=== PATIENT | female | born 1985 | race African-American/Black ===

== ENCOUNTER 2018-09-10 05:55 | Day surgery (SDC) | payer BC ==
[~2018-09-10] VITALS: Ht 167.6 cm; Wt 60.8 kg
[2018-09-10] MEDS ORDERED: CEFAZOLIN SOD 1 GM in D5W 50 ML IV ONE (07:30)
[2018-09-10] MEDS ORDERED: LR 1,000 ML IV SCH (11:05)
[2018-09-10] MEDS ORDERED: METOCLOPRAMIDE HCL 10 MG/2 ML VIAL IVP PRN (11:15)
[2018-09-10] MEDS ORDERED: MORPHINE 4 MG/ML INJ. SYRINGE IVP PRN ×3 (11:15)
[2018-09-10] MEDS ORDERED: ONDANSETRON HCL 4 MG/2 ML VIAL IVP PRN (12:15)
[2018-09-10] MEDS ORDERED: OXYCODONE/ACETAMINOPHEN 5-325 TABLET PO PRN ×2 (12:15)
[2018-09-10] MEDS ORDERED: HYDROcodone/ACETAMIN 5-325 MG TAB (NORCO/ VICODIN) PO PRN (12:15)
[2018-09-10] MEDS ORDERED: MORPHINE 4 MG/ML INJ. SYRINGE ONE (12:58)
[2018-09-10] MEDS ORDERED: SIMETHICONE 80 MG TAB.CHEW PO SCH (13:00)
[2018-09-10 13:46] VITALS: BP_SYST 118
[2018-09-10] MEDS ORDERED: CEFAZOLIN 2 GM IVPB PREMIX 50 ML IV ONE (15:00)
[2018-09-10] MEDS ORDERED: ONDANSETRON HCL 4 MG/2 ML VIAL ONE (16:48)
[2018-09-10] MEDS ORDERED: ONDANSETRON HCL 4 MG/2 ML VIAL IVP ONE (17:55)
[2018-09-10] MEDS ORDERED: LR 1,000 ML IV.SOLN IV ONE (17:55)
[2018-09-10] MEDS ORDERED: NS IRRIG SOLN 1000 ML IR ONE (17:55)
[2018-09-10] MEDS ORDERED: PROPOFOL 200MG/ 20ML VIAL (DIPRIVAN) IV ONE (17:55)
[2018-09-10] MEDS ORDERED: WATER FOR IRRIGATION,STERILE 1,000 ML IRRIG.SOLN IR ONE (17:55)
[2018-09-10] MEDS ORDERED: DEXAMETHASONE SOD PHOSPHATE 4 MG/ML VIAL IVP ONE (17:55)
[2018-09-10] MEDS ORDERED: NS 1000 ML IV.SOLN IV ONE (17:55)
[2018-09-10] MEDS ORDERED: ROCURONIUM BROMIDE 10 MG/ML (ZEMURON) IV ONE (17:55)
[2018-09-10] MEDS ORDERED: MIDAZOLAM HCL 5 MG/5 ML VIAL IVP ONE (17:55)
[2018-09-10] MEDS ORDERED: SEVOFLURANE 15 MIN GAS INH ONE (17:55)
[2018-09-10] MEDS ORDERED: fentaNYL CITRATE 250 MCG/5 ML AMP IV ONE (17:55)
[2018-09-10] MEDS ORDERED: ROPIVACAINE HCL/PF 5 MG/ML 0.5% 30 ML VIAL INFIL ONE (17:55)
== END 2018-09-10 17:00 | disposition home or self-care (01) ==
LOC: SMU 05:55 → SDS 05:55
PROVIDERS: ATTEND Specialist
DX: D25.9 Leiomyoma of uterus, unspecified (principal); Z98.890 Other specified postprocedural states; Z88.8 Allergy status to other drugs, medicaments and biological substances; Z79.899 Other long term (current) drug therapy
CPT/HCPCS: 58546; 64488; 88305; J0690 ×2; J1100; J2250; J2270; J2405; J2704; J3010; J7030; J7060; J7120; E0190